=== PATIENT | male | born 1975 | race Caucasian/White ===

== ENCOUNTER 2016-10-26 14:01 | Emergency (ER) | payer MEDICAID ==
[~2016-10-26] VITALS: Ht 188 cm; Wt 118.0 kg
[~2016-10-26 14:01] MED LIST: AMOX875T PO; LEVA500T PO; MECL12.574 PO
[2016-10-26 14:03] VITALS: BP 147/95; PULSE 94; RESP 20; TEMP 97.8; O2SAT 97
--- NOTE | 2016-10-26 15:10 | PD ---
HPI Chief Complaint: Respiratory Symptoms Time Seen by Provider: 15:09 Travel History International Travel<30 days: No Contact w/Intl Traveler<30days: No Traveled to known affect area: No History of Present Illness HPI 40 YO male presents to the ED for evaluation of "a few weeks" history of shortness of breath, dyspnea on exertion. Occasionally accompanied by palpitations. Patient endorses intermittent wheezing. Patient states that he was diagnosed with bronchitis a few weeks ago, treated with a Z-Avery. He states that the coughing symptoms have improved but he still feels short of breath. He denies fevers, chills, chest pain, abdominal pain, nausea, vomiting, dysuria , back pain, edema of the lower extremities. 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) Respiratory: No ?: Not Past Surgical History Hysterectomy: No Tonsillectomy: Yes Other Surgery: Yes (HERNIA REPAIR X 2) Social History Alcohol Use: No Tobacco Use: No Substance Use: No Allergies-Medications (Allergen,Severity, Reaction): Coded Allergies: No Known Allergies (Unverified , 10/26/16) Reported Meds & Prescriptions Reported Meds & Active Scripts Active Levaquin (Levofloxacin) 750 Mg Tablet 750 Mg PO DAILY Proair Hfa 8.5 GM Inh (Albuterol Sulfate) 90 Mcg/Act Aer 1 Puff INH Q4-6H PRN 108 mcg/actuation Levaquin (Levofloxacin) 500 Mg Tab 500 Mg PO DAILY Amoxil (Amoxicillin) 875 Mg Tab 875 Mg PO BID 10 Days Meclizine Hcl (Meclizine HCl) 12.5 Mg Tab 12.5 Mg PO Q8 PRN Review of Systems Except as stated in HPI: all other systems reviewed are Neg Physical Exam Narrative GENERAL: Well-nourished, well-developed nontoxic appearing white male in no acute distress. SKIN: Focused skin assessment warm/dry. HEAD: Normocephalic. EYES: No scleral icterus. No injection or drainage. NECK: Supple, trachea midline. No JVD or lymphadenopathy. CARDIOVASCULAR: Regular rate and rhythm without murmurs, gallops, or rubs. RESPIRATORY: Breath sounds clear and equal bilaterally. No accessory muscle use. GASTROINTESTINAL: Abdomen soft, non-tender, nondistended. Active bowel sounds MUSCULOSKELETAL: No cyanosis, or edema. Homans sign negative bilaterally. Ambulatory. BACK: Nontender without obvious deformity. No CVA tenderness. Data Data Last Documented VS Vital Signs Date Time Temp Pulse Resp B/P Pulse Ox O2 Delivery O2 Flow Rate FiO2 10/26/16 16:53 80 20 146/84 97 Room Air 10/26/16 14:03 97.8 Orders Complete Blood Count With Diff (10/26/16 15:19) Comprehensive Metabolic Panel (10/26/16 15:19) B-Type Natriuretic Peptide (10/26/16 15:19) D-Dimer (10/26/16 15:19) Act Partial Throm Time (Ptt) (10/26/16 15:19) Prothrombin Time / Inr (Pt) (10/26/16 15:19) Troponin I (10/26/16 15:19) Urinalysis - C+S If Indicated (10/26/16 15:19) Iv Access Insert/Monitor (10/26/16 15:19) Electrocardiogram (10/26/16 15:19) Ecg Monitoring (10/26/16 15:19) Oximetry (10/26/16 15:19) Chest, Single Ap (10/26/16 15:19) Sodium Chloride 0.9% Flush (Ns Flush) (10/26/16 15:30) Methylprednisolone So Succ Inj (Solumedr (10/26/16 15:30) Albuterol-Ipratropium Neb (Duoneb Neb) (10/26/16 15:30) Acetaminophen (Tylenol) (10/26/16 16:30) Labs Laboratory Tests Test 10/26/16 10/26/16 15:40 15:48 White Blood Count 7.5 TH/MM3 Red Blood Count 5.07 MIL/MM3 Hemoglobin 14.8 GM/DL Hematocrit 43.3 % Mean Corpuscular Volume 85.4 FL Mean Corpuscular Hemoglobin 29.1 PG Mean Corpuscular Hemoglobin 34.1 % Concent Red Cell Distribution Width 13.5 % Platelet Count 314 TH/MM3 Mean Platelet Volume 7.7 FL Neutrophils (%) (Auto) 55.0 % Lymphocytes (%) (Auto) 32.3 % Monocytes (%) (Auto) 8.4 % Eosinophils (%) (Auto) 3.6 % Basophils (%) (Auto) 0.7 % Neutrophils # (Auto) 4.1 TH/MM3 Lymphocytes # (Auto) 2.4 TH/MM3 Monocytes # (Auto) 0.6 TH/MM3 Eosinophils # (Auto) 0.3 TH/MM3 Basophils # (Auto) 0.1 TH/MM3 CBC Comment DIFF FINAL Differential Comment Prothrombin Time 10.3 SEC Prothromb Time International 0.9 RATIO Ratio Activated Partial 27.6 SEC Thromboplast Time D-Dimer Quantitative (PE/DVT) 0.22 MG/L FEU Sodium Level 139 MEQ/L Potassium Level 4.1 MEQ/L Chloride Level 104 MEQ/L Carbon Dioxide Level 27.6 MEQ/L Anion Gap 7 MEQ/L Blood Urea Nitrogen 20 MG/DL Creatinine 1.06 MG/DL Estimat Glomerular Filtration 77 ML/MIN Rate Random Glucose 84 MG/DL Calcium Level 8.7 MG/DL Total Bilirubin 1.0 MG/DL Aspartate Amino Transf 31 U/L (AST/SGOT) Alanine Aminotransferase 43 U/L (ALT/SGPT) Alkaline Phosphatase 128 U/L Troponin I LESS THAN 0.02 NG/ML B-Type Natriuretic Peptide 4 PG/ML Total Protein 7.8 GM/DL Albumin 3.8 GM/DL Urine Color YELLOW Urine Turbidity CLEAR Urine pH 5.0 Urine Specific [place] 1.025 Urine Protein NEG mg/dL Urine Glucose (UA) NEG mg/dL Urine Ketones NEG mg/dL Urine Occult Blood NEG Urine Nitrite NEG Urine Bilirubin NEG Urine Urobilinogen LESS THAN 2.0 MG/DL Urine Leukocyte Esterase NEG Urine RBC 1 /hpf Urine WBC 1 /hpf Urine Mucus FEW /lpf Microscopic Urinalysis Comment CULT NOT INDICATED MDM Medical Decision Making Medical Screen Exam Complete: Yes Emergency Medical Condition: Yes Differential Diagnosis bronchitis versus PNA versus PE versus CHF versus obstructive airway disease versus other Narrative Course 40 YO male presents to the ED for evaluation of "a few weeks" history of shortness of breath, dyspnea on exertion. Occasionally accompanied by palpitations. Patient endorses intermittent wheezing. Patient states that he was diagnosed with bronchitis a few weeks ago, treated with a Z-Avery. Vitals reviewed. No hypoxia. Physical exam reveals a nontoxic-appearing white male in no acute distress. Lungs clear to auscultation bilaterally. EKG: Rate 73, sinus rhythm. Normal intervals. Normal axis. No ST elevations. Reviewed by Dr. Haider. CXR: Elevation of the right hemidiaphragm with minimal parenchymal changes in the right base. D dimer: 0.22 Troponin: negative x 1 CBC: no leukocytosis or anemia Patient was administered IV Solu-Medrol and DuoNeb 2. On recheck the patient states that he feel "a little shaky.' Discussed the results of the workup with the patient. At this point I feel that he i safe for discharge with a rescue inhaler and a course of Levaquin. Patient is instructed to take all antibiotics as prescribed, utilize the rescue inhaler as needed, follow up with the primary care provider or reforestation worker. He indicated understanding of instructions and is agreeable to the care plan. He is stable and discharged home. Diagnosis Primary Impression: Dyspnea on exertion Referrals: Primary Care Physician Patient Instructions: Dyspnea (ED), General Instructions Additional Instructions: Rest, hydrate. Take all antibiotics as prescribed. Rescue inhaler as prescribed, as needed for shortness of breath on exertion. Follow up with your primary care provider this week. Return to the ED for any urgent or emergent medical condition. Med/Other Pt SpecificInfo: Prescription(s) given Scripts Levofloxacin (Levaquin)750 Mg [id number] Mg PO DAILY #5 Prov:Ayana Haider MD 10/26/16 Albuterol 8.5 GM Inh (Proair Hfa 8.5 GM Inh)90 Mcg/Act Aer1 Puff INH Q4-6H PRN ( SHORTNESS OF BREATH) #1 INHALER Ref 0 108 mcg/actuation Prov:Ayana Haider MD 10/26/16 Disposition: 01 DISCHARGE HOME Condition: Stable Daria Grace Oct 26, 2016 15:09
[2016-10-26] MEDS ORDERED: methylPREDNISolone SOD SUCC 125 MG/2 ML VIAL IVP ONE (15:30)
[2016-10-26] MEDS ORDERED: SODIUM CHLORIDE 0.9% FLUSH 10 ML FLUSH IVF PRN (15:30)
[2016-10-26 15:35] VITALS: RESP 20; O2SAT 95
--- NOTE | 2016-10-26 15:44 | RADRPT ---
EXAM DATE/TIME: 10/26/2016 15:33 [facility] COMPARISON: No previous studies available for comparison. INDICATIONS : Shortness of breath. MEDICAL HISTORY : None. SURGICAL HISTORY : None. ENCOUNTER: Subsequent ACUITY: 2 days PAIN SCORE: 0/10 LOCATION: chest FINDINGS: There is mild elevation right hemidiaphragm with minimal parenchymal changes right base. Left lung i s clear. The heart and pulmonary vascularity are normal. The portion of the bony skeleton visualized is unremarkable. CONCLUSION: Elevation right hemidiaphragm minimal parenchymal changes right base. Gelacio Carroll MD FACR on October 26, 2016 at 15:39 Board Certified Radiologist. This report was verified electronically.
[2016-10-26 16:30] LABS: AUTOMATED NEUTROPHIL # 4.1 TH/MM3 (1.8-7.7); BASOPHIL # 0.1 TH/MM3 (0-0.2); BASOPHIL % 0.7 % (0.0-2.0); EOSINOPHIL # 0.3 TH/MM3 (0-0.4); EOSINOPHIL % 3.6 % (0.0-4.0); HEMATOCRIT 43.3 % (39.0-51.0); HEMO FLAGS DIFF FINAL; LYMPH % 32.3 % (9.0-44.0); LYMPHOCYTE # 2.4 TH/MM3 (1.0-4.8); MEAN CELL VOLUME 85.4 FL (80.0-100.0); MEAN CORPUSCULAR HEMOGLOBIN 29.1 PG (27.0-34.0); MEAN CORPUSCULAR HGB CONC 34.1 % (32.0-36.0); MONO % 8.4 % (0.0-8.0); PLATELET COUNT 314 TH/MM3 (150-450); RED BLOOD COUNT 5.07 MIL/MM3 (4.50-5.90); RED CELL DISTRIBUTION WIDTH 13.5 % (11.6-17.2); WHITE BLOOD COUNT 7.5 TH/MM3 (4.0-11.0)
[2016-10-26] MEDS ORDERED: ACETAMINOPHEN 325 MG TAB PO ONE (16:30)
[2016-10-26 16:31] LABS: BLOOD, URINE NEG (NEG); COMMENT (UR) CULT NOT INDICATED; CULTURE IF INDICATED CULT NOT INDICATED; GLUCOSE,URINE NEG (NEG); KETONE, URINE NEG (NEG); MUCUS URINE FEW /lpf (OCC); NITRITE,URINE NEG (NEG); URINE COLOR YELLOW (YELLW/STRAW)
[2016-10-26] MEDS: RESP: ALBUTEROL 2.5 MG/IPRATROPIUM 0.5 MG NEB (SCH) INH (16:40)
[2016-10-26 16:53] VITALS: BP 146/84; PULSE 80; RESP 20; O2SAT 97
[2016-10-26 16:55] LABS: ALT (GPT) 43 U/L (12-78)
[2016-10-26 16:58] LABS: ANION GAP 7 MEQ/L (5-15); AST (GOT) 31 U/L (15-37); BICARBONATE 27.6 MEQ/L (21.0-32.0); BLOOD UREA NITROGEN 20 MG/DL (7-18); CHLORIDE 104 MEQ/L (98-107); GLOMERULAR FILTRATION RATE 77 ML/MIN (>89); POTASSIUM 4.1 MEQ/L (3.5-5.1); SODIUM (NA) 139 MEQ/L (136-145)
[2016-10-26 16:59] LABS: ALKALINE PHOSPHATASE 128 U/L (45-117)
[2016-10-26 17:09] LABS: APTT (PATIENT) 27.6 SEC (24.3-30.1); INTERNATIONAL NORMALIZED RATIO 0.9 RATIO; PROTHROMBIN TIME - PATIENT 10.3 SEC (9.8-11.6)
[2016-10-26] MEDS ORDERED: LEVA750T9 PO (17:40)
[2016-10-26] MEDS ORDERED: ALBUAER3 INH (17:40)
[2016-10-26 17:54] VITALS: RESP 18
--- NOTE | 2016-10-27 12:13 | EKG ---
Date Performed: 10/26/2016 Time Performed: 15:53:19 PTAGE: 40 years EKG: Sinus rhythm NORMAL ECG NO PREVIOUS TRACING DOCTOR: Gilberto Gutiérrez Interpretating Date/Time 10/27/2016 12:11:46
== END 2016-10-26 18:33 | disposition home or self-care (01) ==
LOC: NEPD 14:01
DX: R06.09 Other forms of dyspnea (principal); R00.2 Palpitations
CPT/HCPCS: 71010; 80053; 81001; 83880; 84484; 85025; 85379; 85610; 85730; 93005; 94640; 94664; 96374; 99285; J2930

== ENCOUNTER 2016-12-27 09:32 | Emergency (ER) | payer MEDICAID ==
[~2016-12-27] VITALS: Ht 188 cm; Wt 119.0 kg
[~2016-12-27 09:32] MED LIST changes: +ALBUAER3 INH; +LEVA750T9 PO
[2016-12-27 09:33] VITALS: BP 146/94; PULSE 89; RESP 15; TEMP 97.9; O2SAT 97
[2016-12-27] MEDS ORDERED: AMOX875T PO (10:08)
--- NOTE | 2016-12-27 10:09 | PD ---
HPI Chief Complaint: ENT Complaint Time Seen by Provider: 09:54 Travel History International Travel<30 days: No Contact w/Intl Traveler<30days: No Traveled to known affect area: No History of Present Illness HPI This is a 41-year-old male who presents to the emergency department with 1 day of pain in his left ear associated with some drainage from the ear canal, constant, moderate severity, associated with dizziness. He's had problems with recurrent ear infections in the left ear in the past. He says the last time it happened was 6 months ago. He has not had insurance that he's never followed up with an ENT. He says it always clears up with oral antibiotics. He denies any fevers or chills. 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) Respiratory: No Past Surgical History Hysterectomy: No Tonsillectomy: Yes Other Surgery: Yes (HERNIA REPAIR X 2 ADENOIDECTOMY) Social History Alcohol Use: No Tobacco Use: No Substance Use: No Allergies-Medications (Allergen,Severity, Reaction): Coded Allergies: No Known Allergies (Unverified , 10/26/16) Reported Meds & Prescriptions Reported Meds & Active Scripts Active Levaquin (Levofloxacin) 750 Mg Tablet 750 Mg PO DAILY Proair Hfa 8.5 GM Inh (Albuterol Sulfate) 90 Mcg/Act Aer 1 Puff INH Q4-6H PRN 108 mcg/actuation Levaquin (Levofloxacin) 500 Mg Tab 500 Mg PO DAILY Amoxil (Amoxicillin) 875 Mg Tab 875 Mg PO BID 10 Days Meclizine Hcl (Meclizine HCl) 12.5 Mg Tab 12.5 Mg PO Q8 PRN Review of Systems Except as stated in HPI: all other systems reviewed are Neg Physical Exam Narrative GENERAL:Well appearing, no acute distress SKIN: Focused skin assessment warm and dry. HEAD: Atraumatic. Normocephalic. EYES: Pupils equal and round. No injection or drainage. ENT: No swelling of the ear canal. Some yellow purulent drainage in the ear canal, dullness of the tympanic membrane on the left with an absent light reflex. No pain with traction on the auricle. No focal mastoid tenderness. NECK: Trachea midline. CARDIOVASCULAR: Regular rate and rhythm. No murmur appreciated. RESPIRATORY: Clear to auscultation. Breath sounds equal bilaterally. GASTROINTESTINAL: Abdomen soft, non-tender, nondistended. MUSCULOSKELETAL: No obvious deformities. NEUROLOGICAL: Awake and alert. No obvious cranial nerve deficits. Moving all extremities. PSYCHIATRIC: Appropriate mood and affect; insight and judgment normal. Data Data Last Documented VS Vital Signs Date Time Temp Pulse Resp B/P (MAP) Pulse Ox O2 Delivery O2 Flow Rate FiO2 12/27/16 09:33 97.9 89 15 146/94 (111) 97 MDM Medical Decision Making Medical Screen Exam Complete: Yes Emergency Medical Condition: Yes Differential Diagnosis Otitis media, otitis externa, mastoiditis Narrative Course This is a 41-year-old male who presents to the emergency department with pain in his left ear and malodorous drainage that started this morning. On his exam he appears more to have an otitis media likely with associated tympanic membrane rupture than otitis externa as he has minimal swelling of the ear canal itself and minimal pain with manipulation of the auricle. He is otherwise nontoxic appearing. We will pursue a trial of oral antibiotic therapy. He says he soon will qualify for insurance and I recommended that he follow-up with an ENT as soon as possible. Diagnosis Primary Impression: Suppurative otitis media of left ear with tympanic membranerupture Qualified Codes: H66.015 - Acute suppurative otitis media with spontaneous rupture of ear drum, recurrent, left ear Patient Instructions: General Instructions Additional Instructions: If you develop fever, chills, or severe pain behind the left ear or swelling return to the emergency department. Follow-up with an ENT as soon as possible. Med/Other Pt SpecificInfo: Prescription(s) given Scripts Amoxicillin (Amoxicillin) 875 Mg Tab 875 MG PO BID for Infection for 10 Days, TAB 0 Refills Prov: Ayana Haider MD 12/27/16 Disposition: 01 DISCHARGE HOME Condition: Stable Ayana Haider MD Dec 27, 2016 10:09
[2016-12-27] MEDS ORDERED: MECL-62 PO (10:10)
== END 2016-12-27 10:29 | disposition home or self-care (01) ==
LOC: NEPE 09:32
DX: H66.015 Acute suppurative otitis media with spontaneous rupture of ear drum, recurrent, left ear (principal)
CPT/HCPCS: 99284